=== PATIENT | male | born 1955 | race Caucasian/White ===

== ENCOUNTER → 2021-08-05 | Outpatient (CLI) | payer MEDICARE ==
--- NOTE | 2021-08-05 13:53 | US ---
EXAMINATION TYPE: US abdomen complete DATE OF EXAM: 08/05/2021 COMPARISON: NONE CLINICAL HISTORY: 66-year-old male R10.84 Abdominal pain generalized. TECHNIQUE: Multiple sonographic images of the abdomen are obtained. FINDINGS: EXAM MEASUREMENTS: Liver Length: 13.9 cm Gallbladder Wall: 0.3 cm CBD: 0.5 cm Spleen: 13.4 cm Right Kidney: 10.8 x 5.6 x 4.8 cm Left Kidney: 10.3 x 5.1 x 4.9 cm [employer]urbine Subas[employer]er notes: Extensive overlying bowel gas. Pancreas: Suboptimal visualization of the pancreatic tail and head due to shadowing from bowel gas. Visualized pancreatic body shows no gross abnormality. Liver: Slightly heterogeneous parenchyma suspected to be on a technical basis. No focal lesion seen. Gallbladder: wnl Evidence for sonographic Aguirre's sign: no CBD: wnl Spleen: Borderline in size at 13.4 cm. Kidneys: Bilateral lower pole is obscured by overlying bowel gas. No hydronephrosis. Upper IVC: wnl Abd Aorta: Obscured by overlying bowel gas IMPRESSION: No gallstones or biliary duct dilatation. Spleen upper limits of normal in size at 13.4 cm.
== END | disposition home or self-care (01) ==
LOC: RADUSWWP 09:40
PROVIDERS: ATTEND Internal Medicine
DX: R10.84 Generalized abdominal pain (principal)
CPT/HCPCS: 76700